=== PATIENT | female | born 2000 | race Caucasian/White ===

== ENCOUNTER 2019-02-20 23:26 | Emergency (ER) | payer MEDICAID ==
[~2019-02-20] VITALS: Ht 175.3 cm; Wt 99.1 kg
[2019-02-20 23:57] VITALS: BP 128/79; TEMP 96.9
[2019-02-21] MEDS ORDERED: GLUCOPHAGE500 MG/TAB PO (00:44)
[2019-02-21 01:03] LABS: BASO % 0.1 % (0.0-2.0); EOS # 0.1 (0.0-0.7); EOS % 0.7 % (0-4.0); GRAN % 56.8 % (42.2-75.2); HEMATOCRIT 40.6 % (35.0-45.0); HEMOGLOBIN 12.9 g/dl (12.0-15.0); LYMPH # 3.8 (1.2-3.4); LYMPH % 35.6 % (20.0-51.0); MEAN CELL VOLUME 89 fl (80.0-95.0); MEAN CORPUSCULAR HEMOGLOBIN 28 pg (26.0-32.0); MEAN CORPUSCULAR HGB CONC 32 g/dl (33.0-37.0); MEAN PLATELET VOLUME 9.7 fl (7.4-10.4); MONO # 0.7 (0.1-0.6); MONO % 6.3 % (1.7-9.3); PLATELET COUNT 368 K/mm3 (130-400); RED BLOOD COUNT 4.58 M/mm3 (4.10-5.30); REDCELL DISTRIBUTION WIDTH-CV 14.3 % (11.5-14.5)
[2019-02-21 01:15] LABS: BILIRUBIN,TOTAL 0.3 mg/dL (0.0-1.0); C-REACTIVE PROTEIN 1.4 mg/dL (0.0-0.9); CREATININE, serum 0.72 (0.52-1.25); POTASSIUM 3.8 mmol/L (3.4-5.0); TOTAL PROTEIN 7.6 gm/dL (6.4-8.2)
[2019-02-21 01:24] LABS: ERYTHROCYTE SEDIMENTATION RATE 15 mm/hr (0-20)
[2019-02-21 01:41] LABS: COLLECTION METHOD CLEAN CATCH
[2019-02-21 01:55] LABS: MUCOUS Present /lpf; PH 5 (5-8); URINE APPEARANCE Hazy; URINE BACTERIA Rare /hpf; URINE BILIRUBIN Negative (NEGATIVE); URINE BLOOD Negative (NEGATIVE); URINE COLOR Yellow; URINE GLUCOSE Negative (NEGATIVE); URINE KETONE Trace (NEGATIVE); URINE LEUKOCYTE ESTERASE 2+ (NEGATIVE); URINE NITRATE Negative (NEGATIVE); URINE PROTEIN(semi-quant) Negative (NEGATIVE); URINE UROBILINOGEN Negative (NEGATIVE)
[2019-02-21] MEDS ORDERED: CEPHALEXIN500 M1 PO (01:59)
[2019-02-21] MEDS ORDERED: PREDNISONE20 MG PO (02:02)
[2019-02-21 02:08] VITALS: PULSE 86
== END 2019-02-21 02:10 | disposition home or self-care (01) ==
LOC: COL.ER 23:26
PROVIDERS: Physician Assistant
DX: T78.40XA Allergy, unspecified, initial encounter (principal); N39.0 Urinary tract infection, site not specified; E11.9 Type 2 diabetes mellitus without complications; Z79.84 Long term (current) use of oral hypoglycemic drugs

== ENCOUNTER 2019-02-26 06:19 | Emergency (ER) | payer MEDICAID ==
[~2019-02-26] VITALS: Ht 175.3 cm; Wt 99.1 kg
[~2019-02-26 06:19] MED LIST: CEPHALEXIN500 M1 PO; GLUCOPHAGE500 MG/TAB PO; PREDNISONE20 MG PO
[2019-02-26] MEDS ORDERED: BENADRYL50 MG PO (06:43)
[2019-02-26] MEDS ORDERED: EPIPEN 2-PAK1 MG/ML IM (07:51)
[2019-02-26] MEDS ORDERED: MEDROL 4MG DOSPA4 MG PO (07:51)
[2019-02-26 08:17] LABS: ALBUMIN 3.4 gm/dL (3.5-5.0); BILIRUBIN,TOTAL 0.2 mg/dL (0.0-1.0); CALCIUM 8.2 mg/dL (8.4-10.2); CREATININE, serum 0.73 (0.52-1.25); POTASSIUM 3.7 mmol/L (3.4-5.0); TOTAL PROTEIN 6.5 gm/dL (6.4-8.2)
[2019-02-26 08:21] LABS: BASO % 0.1 % (0.0-2.0); EOS # 0.1 (0.0-0.7); EOS % 1.3 % (0-4.0); GRAN # 5.2 (1.4-6.5); GRAN % 47.6 % (42.2-75.2); HEMOGLOBIN 12.2 g/dl (12.0-15.0); LYMPH # 4.7 (1.2-3.4); LYMPH % 43.4 % (20.0-51.0); MEAN CELL VOLUME 90 fl (80.0-95.0); MEAN CORPUSCULAR HEMOGLOBIN 28 pg (26.0-32.0); MEAN CORPUSCULAR HGB CONC 31 g/dl (33.0-37.0); MONO # 0.8 (0.1-0.6); PLATELET COUNT 391 K/mm3 (130-400); RED BLOOD COUNT 4.35 M/mm3 (4.10-5.30)
[2019-02-26 09:19] VITALS: BP 122/67; PULSE 85; TEMP 98
== END 2019-02-26 09:24 | disposition home or self-care (01) ==
LOC: COL.ER 06:19
PROVIDERS: Emergency Medicine
DX: T78.3XXA Angioneurotic edema, initial encounter (principal); E11.9 Type 2 diabetes mellitus without complications
CPT/HCPCS: J0171; J1200; J2930; J7040